=== PATIENT | male | born 1990 | race African-American/Black ===

== ENCOUNTER 2022-01-23 13:37 | Emergency (ER) | payer OTHER ==
[~2022-01-23] VITALS: Ht 177.8 cm; Wt 68.0 kg
[~2022-01-23 13:37] MED LIST: CEPHALEXIN500 MG PO; NO HOME MEDS; ZOFRAN ODT4 MG PO
[2022-01-23] MEDS ORDERED: PAXLOVID PO (15:42)
[2022-01-23 15:47] VITALS: BP 121/78
== END 2022-01-23 15:53 | disposition home or self-care (01) | DRG 179 ==
LOC: ED 13:37
DX: U07.1 COVID-19 (principal); R50.9 Fever, unspecified; J02.9 Acute pharyngitis, unspecified; R05.9 Cough, unspecified; M79.10 Myalgia, unspecified site; R51.9 Headache, unspecified; F17.200 Nicotine dependence, unspecified, uncomplicated

== ENCOUNTER 2022-11-08 13:58 | Emergency (ER) | payer OTHER ==
[2022-11-08] VITALS (12 sets, daily range): BP systolic 113–125; BP diastolic 52–82
[~2022-11-08] VITALS: Ht 177.8 cm; Wt 69.8 kg
[~2022-11-08 13:58] MED LIST changes: +PAXLOVID PO
[2022-11-08] MEDS ORDERED: MOTRIN800 MG PO (17:32)
== END 2022-11-08 17:48 | disposition home or self-care (01) | DRG 556 ==
LOC: ED 13:58
DX: M79.641 Pain in right hand (principal)